=== PATIENT | female | born 1955 ===

== ENCOUNTER 2025-10-19 06:31 | Day surgery (SDC) | payer MEDICARE, OTHER ==
[2025-10-19 11:05] VITALS: BP 123/79
--- NOTE | 2025-10-19 11:29 | NUR ---
RECLAST COMPLETE AT 1129, NO REASSESSMENT OPTION ON EMAR TO CHART END TIME. PT DENIES NEED FOR OBSERVATION, HAS BEEN RECEIVING RECLAST PRIOR TO MOVING TO OUR AREA.
[2025-10-19] MEDS ORDERED: ATOR80 PO (12:01)
[2025-10-19] MEDS ORDERED: ARNUITY ELLIP200 MCG INH (12:01)
[2025-10-19] MEDS ORDERED: BENADRYL25 MG PO (12:02)
[2025-10-19] MEDS ORDERED: LEVSOD112 PO (12:03)
[2025-10-19] MEDS ORDERED: Flonase 0.05% N16 GM (12:03)
[2025-10-19] MEDS ORDERED: SKYRIZI150 MG/1 M SC (12:04)
[2025-10-19] MEDS ORDERED: MELATONIN5 M1 PO (12:04)
== END 2025-10-19 11:31 | disposition home or self-care (01) ==
LOC: ATC 06:31
DX: M81.0 Age-related osteoporosis without current pathological fracture (principal); Z88.2 Allergy status to sulfonamides
CPT/HCPCS: 96365; J3489